=== PATIENT | male | born 1945 | race Caucasian/White ===

== ENCOUNTER → 2020-07-27 | Outpatient (CLI) | payer MEDICARE, OTHER | LOC: US 09:30 | DX: N17.9 Acute kidney failure, unspecified (principal); N28.89 Other specified disorders of kidney and ureter ==

== ENCOUNTER → 2020-09-07 | Outpatient (CLI) | payer MEDICARE, OTHER ==
[2020-09-07 15:55] LABS: BUN/CREATININE RATIO 24 (0-10)
== END ==
LOC: MRI 13:00
PROVIDERS: Internal Medicine Nephrology
DX: N18.2 Chronic kidney disease, stage 2 (mild) (principal); N28.1 Cyst of kidney, acquired
CPT/HCPCS: 36415; 74183; 80053; 82570; 84156; A9577

== ENCOUNTER 2021-02-12 00:23 | Emergency (ER) | payer MEDICARE, OTHER | END 2021-02-12 02:06 | disposition home or self-care (01) | LOC: ER1 00:23 | DX: R06.02 Shortness of breath (principal); R05 Cough; E11.9 Type 2 diabetes mellitus without complications; I51.9 Heart disease, unspecified; F17.290 Nicotine dependence, other tobacco product, uncomplicated; Z90.49 Acquired absence of other specified parts of digestive tract; Z90.89 Acquired absence of other organs | CPT/HCPCS: 71046; 93005; 99285 ==

== ENCOUNTER → 2021-04-07 | Outpatient (CLI) | payer MEDICARE, OTHER | LOC: KOH-I 10:52 | DX: R05.9 Cough, unspecified (principal) | CPT/HCPCS: 71046 ==

== ENCOUNTER → 2021-06-14 | Outpatient (CLI) | payer MEDICARE, OTHER | LOC: EXRD 12:35 | DX: N28.1 Cyst of kidney, acquired (principal) | CPT/HCPCS: 76775 ==

== ENCOUNTER → 2022-01-08 | Outpatient (CLI) | payer MEDICARE, OTHER | LOC: KOH-I 15:05 | DX: R20.2 Paresthesia of skin (principal) | CPT/HCPCS: 93925 ==

== ENCOUNTER → 2022-02-13 | Outpatient (CLI) | payer MEDICARE, OTHER | LOC: KOH-I 15:13 | DX: M25.532 Pain in left wrist (principal); M79.642 Pain in left hand; M79.602 Pain in left arm; M19.042 Primary osteoarthritis, left hand | CPT/HCPCS: 73090; 73110; 73130 ==